=== PATIENT | male | born 1970 | race Caucasian/White ===

== ENCOUNTER 2019-12-12 18:29 | Emergency (ER) | payer BC ==
[~2019-12-12] VITALS: Ht 167.6 cm; Wt 127.0 kg
[2019-12-12 18:30] VITALS: BP 118/72
--- NOTE | 2019-12-12 18:30 | NUR ---
CAME IN FOR ON AND OFF COUGH x 4MONTHS, AFEBRILE. TO ER BED 9, HOOKED TO MONITOR, PROVIDED W WARM BLANKET, DR DAVILA AT BEDSIDE
--- NOTE | 2019-12-12 19:09 | NUR ---
REPORT GIVEN TO DEVORAH URBAN FOR JAYNE
--- NOTE | 2019-12-12 19:16 | NUR ---
XRAY AT BEDSIDE
--- NOTE | 2019-12-12 19:38 | NUR ---
AT BEDSIDE AND RE-EVALUATED BY .
--- NOTE | 2019-12-12 19:48 | NUR ---
Patient discharged to home in stable condition. Written and verbal after care instructions given. Patient verbalizes understanding of instruction.
== END 2019-12-12 19:48 | disposition home or self-care (01) ==
LOC: ER 18:29
DX: R05 Cough (principal); F17.200 Nicotine dependence, unspecified, uncomplicated
CPT/HCPCS: 71045-TC